=== PATIENT | male | born 1995 | race Caucasian/White ===

== ENCOUNTER 2019-10-20 14:22 | Emergency (ER) | payer OTHER ==
[2019-10-20] MEDS ORDERED: Lidocaine 1% 20 ML MDV INFILT ONE (14:23)
[2019-10-20] MEDS ORDERED: Lidocaine/EPINEPHrine/Tetracaine Soln 5 ML Each TOP ONE (14:30)
[2019-10-20] MEDS ORDERED: Diphtheria,Pertussis(Acell),Tetanus Vaccine 0.5 ML SDV IM ONE (15:11)
--- NOTE | 2019-10-20 15:11 | EDM.PDOC ---
ED HPI GENERAL MEDICAL PROBLEM - General Stated Complaint: LT THUMB LACERATION Time Seen by Provider: 10/20/19 14:40 Source of Information: Reports: Patient History Limitations: Reports: No Limitations - History of Present Illness INITIAL COMMENTS - FREE TEXT/NARRATIVE: Patient presented to the Ed because of left thumb injury. He accidentally cut the mid phalanx of his left thumb with a box stacker and sustained a 2 cm laceration. He is able to extend and flex his left thumb without any difficulty. - Related Data Allergies Allergy/AdvReac Type Severity Reaction Status Date / Time No Known Allergies Allergy Verified 10/20/19 14:51 Home Meds: Home Meds Multivitamin [Multivitamins] 1 each PO BEDTIME 10/20/19 [History] cephALEXin [Keflex] 500 mg PO Q8H #30 cap 10/20/19 [Rx] Review of Systems - Review of Systems Review Of Systems: See Below Constitutional: Reports: No Symptoms Nose: Reports: No Symptoms Mouth/Throat: Reports: No Symptoms Respiratory: Reports: No Symptoms Cardiovascular: Reports: No Symptoms GI/Abdominal: Reports: No Symptoms Genitourinary: Reports: No Symptoms Musculoskeletal: Reports: No Symptoms Skin: Reports: No Symptoms Neurological: Reports: No Symptoms Psychiatric: Reports: No Symptoms ED EXAM, GENERAL - Physical Exam Exam: See Below Exam Limited By: No Limitations General Appearance: Alert Eye Exam: Bilateral Eye: PERRL Nose: Normal Inspection Throat/Mouth: Normal Inspection Respiratory/Chest: No Respiratory Distress Cardiovascular: Normal Peripheral Pulses GI/Abdominal: Normal Bowel Sounds Back Exam: Normal Inspection Extremities: Normal Inspection Neurological: Alert, Oriented Skin Exam: Warm, Wound/Incision ED TRAUMA EXTREMITY PROCEDURES - Laceration/Wound Repair Left Upper Digit - 1st (Thumb) Lac/Wound Length In cm: 2 Appearance: Superficial Anesthetic Type: Local Local Anesthesia - Lidocaine (Xylocaine): 1% Plain Local Anesthetic Volume: 3cc Skin Prep: Chlorhexidine (Hibiciens) Closed With: Sutures Suture Size: 4-0 Suture Type: Nylon Suture Size: 4-0 Course - Vital Signs Text/Narrative:: Tdap Last Recorded V/S: Last Vital Signs Temp 22.2 C L 10/20/19 16:08 Pulse 72 10/20/19 16:08 Resp 20 10/20/19 16:08 BP 128/73 10/20/19 16:08 Pulse Ox 98 10/20/19 16:08 - Orders/Labs/Meds Orders: Active Orders 24 hr Category Date Time Status Vaccines to be Administered [RC] PER UNIT ROUTINE Care 10/20/19 15:11 Active Meds: Medications Discontinued Medications Generic Name Dose Route Start Last Admin Trade Name Chika PRN Reason Stop Dose Admin Diphtheria/Tetanus/Acell Pertussis 0.5 ml 10/20/19 15:11 10/20/19 15:22 Adacel IM 10/20/19 15:12 0.5 ml .ONCE ONE Administration Lidocaine/Tetracaine 5 ml 10/20/19 14:30 10/20/19 14:35 Let Soln TOP 10/20/19 14:31 5 ml ONETIME ONE Administration Departure - Departure Time of Disposition: 15:15 Disposition: Home, Self-Care 01 Condition: Good Clinical Impression: Laceration - Discharge Information Prescriptions: cephALEXin [Keflex] 500 mg PO Q8H #30 cap Instructions: Laceration Care, Adult Referrals: Lala Torres NP [Primary Care Provider] - Additional Instructions: please read discarge instructions on laceration and wound care keflex 500 mg 3 times daily for 10 days removal of suture in 10 days Sepsis Event Note - Focused Exam Date Exam was Performed: 10/21/19 Time Exam was Performed: 05:01 - My Orders Last 24 Hours: My Active Orders 10/20/19 15:11 Vaccines to be Administered [RC] PER UNIT ROUTINE - Assessment/Plan Last 24 Hours: My Active Orders 10/20/19 15:11 Vaccines to be Administered [RC] PER UNIT ROUTINE
== END 2019-10-20 16:05 | disposition home or self-care (01) ==
LOC: FB.ED 14:22
DX: S61.012A Laceration without foreign body of left thumb without damage to nail, initial encounter (principal); Z23 Encounter for immunization; W27.8XXA Contact with other nonpowered hand tool, initial encounter
CPT/HCPCS: 12001; 90471; 90715; 99000; 99282; A9270; J2001